=== PATIENT | female | born 2000 | race Caucasian/White ===

== ENCOUNTER 2024-08-26 22:15 | Emergency (ER) | payer OTHER ==
[2024-08-26 22:23] VITALS: BP 119/76; PULSE 96; RESP 20; TEMP 98.8; BMI 26.4
[2024-08-27] MEDS ORDERED: FAMOTIDINE 20 MG/50 ML IVPB 20 MG/50 ML MG IVPB ONE (00:04)
[2024-08-27] MEDS ORDERED: ACETAMINOPHEN INJECTION 100 ML ONE (00:04)
[2024-08-27] MEDS: FAMOTIDINE 20 MG/50 ML IVPB 20 MG/50 ML MG IVPB ONE (00:38)
[2024-08-27] MEDS: SODIUM CHLORIDE 0.9% 500 ML INFUS.BAG IV ONE (00:38)
[2024-08-27] MEDS: ACETAMINOPHEN 1000 MG/100 ML BAG IVPB ONE (00:38)
[2024-08-27 01:06] LABS: BASO % 0.5 % (0-2.0); EOS % 0.2 % (0-4.5); HEMATOCRIT 39.6 % (32.4-45.2); HEMOGLOBIN 13.5 GM/dL (10.7-15.3); LYMPH % 15.6 % (8-40); MEAN CELL VOLUME 88.1 fl (80-96); MEAN PLT VOLUME 7.7 fl (7.5-11.1); MONO % 5.8 % (3.8-10.2); NEUT % 77.9 % (42.8-82.8); PLATELET COUNT 384 10^3/uL (134-434); RDW 12.6 % (11.6-15.6); WHITE BLOOD COUNT 13.5 K/mm3 (4.0-10.0)
[2024-08-27 01:21] LABS: HCG,QUALITATIVE URINE Negative
[2024-08-27 01:25] LABS: CALCIUM 9.7 mg/dL (8.5-10.1)
[2024-08-27 01:26] LABS: ALBUMIN 4.4 g/dl (3.4-5.0); BLOOD UREA NITROGEN 11.2 mg/dL (7-18)
[2024-08-27 01:29] LABS: CREATININE 0.6 mg/dL (0.55-1.3)
[2024-08-27 01:30] LABS: BILIRUBIN,TOTAL 0.8 mg/dL (0.2-1); TOT PROT 8.1 g/dl (6.4-8.2)
[2024-08-27 02:18] LABS: HIV INTERPRETATION NEGATIVE (NEGATIVE)
[2024-08-27 02:43] LABS: EPI CELLS >36 /uL (0-25.1); HYALINE CASTS 0 /uL (0-3.1); URINE APPEARANCE CLOUDY; URINE BACTERIA 6637 /uL (0-1359); URINE BILIRUBIN NEGATIVE (NEGATIVE); URINE COLOR YELLOW; URINE GLUCOSE (UA) NEGATIVE (NEGATIVE); URINE KETONE TRACE (NEGATIVE); URINE LEUK ESTERASE TRACE (NEGATIVE); URINE NITRITE NEGATIVE (NEGATIVE); URINE PROTEIN NEGATIVE (NEGATIVE); URINE RBC 9 /uL (0-23.9); URINE WBC 36 /uL (0-25.8)
[2024-08-27 03:06] LABS: EPI CELLS >36 /uL (0-25.1); HYALINE CASTS 1 /uL (0-3.1); URINE APPEARANCE CLOUDY; URINE BACTERIA >9,000 /uL (0-1359); URINE BILIRUBIN NEGATIVE (NEGATIVE); URINE COLOR YELLOW; URINE GLUCOSE (UA) NEGATIVE (NEGATIVE); URINE KETONE NEGATIVE (NEGATIVE); URINE LEUK ESTERASE TRACE (NEGATIVE); URINE NITRITE NEGATIVE (NEGATIVE); URINE PROTEIN NEGATIVE (NEGATIVE); URINE RBC 8 /uL (0-23.9); URINE WBC 33 /uL (0-25.8)
[2024-08-27] MEDS ORDERED: AMPICILLIN NA/SULBACTAM NA 1.5 GM VIAL ONE (03:27)
[2024-08-27] MEDS: AMPICILLIN NA/SULBACTAM NA 1.5 GM in SODIUM CHLORIDE 100 ML IVPB ONE (03:39)
[2024-08-27] MEDS: CEPHALEXIN MONOHYDRATE 500 MG CAPSULE (UD) PO ONE (03:39)
== END 2024-08-27 04:52 | disposition home or self-care (01) ==
LOC: JER 22:15
PROC: 3E03329 Introduction of Other Anti-infective into Peripheral Vein, Percutaneous Approach (ICD-10-PCS; principal; 2024-08-27)
PROC: 3E033GC Introduction of Other Therapeutic Substance into Peripheral Vein, Percutaneous Approach (ICD-10-PCS; 2024-08-27)
PROC: 3E033NZ Introduction of Analgesics, Hypnotics, Sedatives into Peripheral Vein, Percutaneous Approach (ICD-10-PCS; 2024-08-27)
DX: N30.90 Cystitis, unspecified without hematuria (principal); R10.31 Right lower quadrant pain; R10.32 Left lower quadrant pain; Z20.822 Contact with and (suspected) exposure to COVID-19
CPT/HCPCS: 0241U-QW; 36415; 74177-TC; 80053; 81003; 83690; 84703; 85025; 86803; 87086; 87186; 87389; 87491; 87591; 99285-25; J0131; Q9967